=== PATIENT | male | born 1965 | race Caucasian/White ===

== ENCOUNTER 2016-05-26 12:45 | Day surgery (SDC) | payer OTHER ==
[~2016-05-26] VITALS: Ht 177.8 cm; Wt 75.0 kg
[~2016-05-26 12:45] MED LIST: DEXT10TA PO; Lactated Ringer's 1,000 ML IV SCH
[2016-05-26] MEDS ORDERED: Propofol 10,000 mCg/mL 20 mL Inj ONE (12:46)
[2016-05-26] MEDS ORDERED: Ondansetron 2 mg/mL 2 mL Inj ONE (12:46)
[2016-05-26 13:19] VITALS: BP 128/77; PULSE 72; RESP 19; O2SAT 97
[2016-05-26] MEDS ORDERED: CITA40TA13 PO (13:21)
[2016-05-26] MEDS ORDERED: Lactated Ringer's 1,000 ML IV SCH (13:41)
--- NOTE | 2016-05-26 13:42 | PCM.HPANE ---
Patient Data Surgeon Admitting Provider: Attending Provider:Stephen Hayden MD Primary Care Physician:Wilfredo Mcclain MD Other Provider:[facility] Reason for Visit Family History Of Colon Cancer Ht/WT & BMI Body Mass Index Allergies Coded Allergies: No Known Allergies (Unverified , 05/25/16) Medications Reported Medications Citalopram 40 Mg [id number] Mg PO DAILY 30 Days Ref 0 05/26/16 Dextroamphetamine Sulfate (Dexedrine)10 Mg Iqpoul35 Mg PO BID 05/25/16 Stop/Bang Risk Assessment Category Category 1A: Patient has history of documented sleep apnea, and HAS NOT received any narcotic, sedative or anesthesia administration during this stay. Category 1B: Patient has history of documented sleep apnea, and HAS received any narcotic , sedative or anesthesia administration during this stay Category 2: Patient has SUSPECTED Obstructive Sleep Apnea, and HAS received any narcotic , sedative or anesthesia administration during this stay. Category 3: Patient has SUSPECTED Obstructive Sleep Apnea and HAS NOT received narcotic, sedative or anesthesia administration during this stay. Category 4: Outpatient in Procedural Areas with known sleep apnea or who screen positive for High Risk via the STOP/BANG questionnaire. Exam Exam General Appearance: Alert, Oriented X3, Cooperative, No Acute Distress HEENT/AIRWAY: MP 2, Neck Movement (from), Mouth Opening (3 FBMO) Lungs: Clear to Auscultation, Normal Air Movement Heart: Exam Unremarkable, Regular Rate/Rhythm, No Murmurs/Rubs/Gallops Plan Impression Patient chart reviewed, patient interviewed and anesthestic plan with risks, benefits, and alternatives discussed, and informed consent obtained. NPO Status: > 8HRS ASA Physical Status: ASA1 Normal Healthy Anesthetic Plan: MAC Bene/Risks/Altern/Consents: Yes HP Complete Prior to Induction: Yes Alcides Landis MD May 26, 2016 07:27
[2016-05-26] MEDS ORDERED: Ondansetron 2 mg/mL 2 mL Inj IVPUSH PRN (13:45)
[2016-05-26] MEDS ORDERED: MetoCLOpramide 5 mg/mL 2 mL Inj IVPUSH PRN (13:45)
[2016-05-26 14:01] VITALS: BP 113/66; PULSE 67; RESP 14; O2SAT 97
[2016-05-26 14:11] VITALS: BP 116/66; PULSE 64; RESP 16; O2SAT 97
--- NOTE | 2016-05-26 14:20 | ENDO ---
[address] [address] ENDOSCOPY PROCEDURE PATIENT: JOAQUÍN VELASCO : 1965 MR#: [id number] ADMIT: 05/26/2016 JOB ID: [id number] OPERATION: Colonoscopy. PREOPERATIVE DIAGNOSIS(ES): Family history of colon cancer. POSTOPERATIVE DIAGNOSIS(ES): Small internal hemorrhoids. ANESTHESIA: Monitored anesthesia care. COMPLICATIONS: None. BLOOD LOSS: Minimal. DESCRIPTION OF PROCEDURE: After risks and benefits were explained to the patient, informed consent was obtained. After anesthesia was administered, the colonoscope was inserted from the rectum to the cecum while the mucosa was examined. Prep of the patient was fair. After the procedure was done, the scope was withdrawn and the procedure terminated. FINDINGS: Upon inspection of the anus no masses, hemorrhoids, ulcers, or fissures that were seen throughout the entire examination. There were no polyps, masses, or lesions. Retroflexion showed small internal hemorrhoids. IMPRESSION: Small internal hemorrhoids. RECOMMENDATION: Stool softer as needed. Repeat colonoscopy in five years given family history of colon cancer.
[2016-05-26 14:21] VITALS: BP 121/81; PULSE 66; RESP 16; O2SAT 97
--- NOTE | 2016-05-26 15:45 | PCM.ANEP1 ---
Post Anesthesia Phase 1 PACU Phase 1 Assessment Vital Signs Vital Signs Date Time Temp Pulse Resp B/P Pulse Ox O2 Delivery O2 Flow Rate FiO2 05/26/16 14:21 66 16 121/81 97 Room Air 05/26/16 14:11 64 16 116/66 97 Room Air 05/26/16 14:01 67 14 113/66 97 Room Air 05/26/16 13:19 72 19 128/77 97 Room Air Anesthetic Administered: MAC Level of Alertness: Awake, talking GILMAN's with Equal Strength: Yes Pain: No Nausea or Vomiting: No Oxygen Delivery: Room Air Lungs: Clear to Auscultation, Normal Air Movement Dermatome Level: Full Sensation Alcides Landis MD May 26, 2016 15:44
--- NOTE | 2016-05-26 15:45 | PCM.ANEP2 ---
Post Anesthesia Evaluation ASA/CMS Post Anesthesia VS in Patient's Normal Range?: Yes Resp Stable; Airway Patent?: Yes CV Function & Hydration Stable: Yes Mental Status Recovered?: Yes Pain control Satisfactory?: Yes N/V Control Satisfactory?: Yes Alcides Landis MD May 26, 2016 15:45
== END 2016-05-26 23:59 | disposition home or self-care (01) ==
LOC: END 12:45
PROVIDERS: ATTEND Internal Medicine Gastroenterology
DX: Z12.11 Encounter for screening for malignant neoplasm of colon (principal); Z80.0 Family history of malignant neoplasm of digestive organs; K64.8 Other hemorrhoids; F41.9 Anxiety disorder, unspecified; G47.419 Narcolepsy without cataplexy
CPT/HCPCS: G0105; J2405; J7120